=== PATIENT | female | born 1995 | race Two or more races ===

== ENCOUNTER 2025-08-30 08:30 | Emergency (ER) | payer BC, SELFPAY ==
--- NOTE | 2025-08-30 08:42 | EKG_ITS ---
[facility] [place] [facility] Test Date: 2025-08-30 Pat Name: JOSE CERVANTES Department: Room: - Gender: Female Government Professor: : 1995 Requested By: Steve Khoury (CHAIM) Order Number: [id number] Reading MD: Steve Khoury (ACCOUNTS PAYABLE COORDINATOR) Measurements Intervals [place] Rate: 72 P: 42 ME: 126 QRS: 76 QRSD: 85 T: 51 QT: 373 QTc: 410 Interpretive Statements SINUS RHYTHM No previous ECG available for comparison /store/S0/[id number].pdf
[2025-08-30 08:47] VITALS: BP 95/64; PULSE 71; RESP 18; TEMP 36.6; O2SAT 100
[2025-08-30 08:48] VITALS: BMI 22.6
--- NOTE | 2025-08-30 08:50 | PD.EDRME ---
Rapid Medical Screening Exam RME Arrival date/time: 08/30/25 08:30 30-year-old female presents to the Emergency Department today for complaint of near syncopal episode today patient reports episode of weakness where she felt like she was going to fall to the ground Chief Complaint: Syncope / Near Syncope Vital signs: Vital Signs Temperature 97.8 F 08/30/25 08:47 Pulse Rate 71 08/30/25 08:47 Respiratory Rate 18 08/30/25 08:47 Blood Pressure 95/64 08/30/25 08:47 Pulse Oximetry (%) 100 08/30/25 08:47 Oxygen Delivery Method Room Air 08/30/25 08:47
[2025-08-30 10:04] LABS: Basophils # (Auto) 0.1 Thou/mm3 (0.0-0.2); Basophils % (Auto) 1 % (0-2.5); Eosinophils # (Auto) 0.1 Thou/mm3 (0.0-0.5); Eosinophils % (Auto) 1 % (0-10); Hematocrit 39.1 % (36.0-46.0); Hemoglobin 13.1 g/dL (12.0-16.0); Immature Granulocytes Auto 0.02 Thou/mm3 (0.00-0.00); Lymphocytes # (Auto) 0.7 Thou/mm3 (1.0-4.8); Lymphocytes % (Auto) 10 % (10-50); Mean Corpuscular HGB Conc 33.5 g/dl (31.0-37.0); Mean Corpuscular Hemoglobin 29.5 pg (25.0-35.0); Mean Corpuscular Volume 88 fL (80-100); Monocytes # (Auto) 0.6 Thou/mm3 (0.0-0.8); Monocytes % (Auto) 8 % (0-12); Neutrophils # (Auto) 5.5 Thou/mm3 (1.8-7.7); Neutrophils % (Auto) 80 % (37-80); Nucleated Red Blood Cell # 0.00 Thou/mm3 (0.00-0.00); Nucleated Red Blood Cell % 0 /100 WBC (0); Platelet Count 228 Thou/mm3 (140-440); RDW Standard Deviation 39.8 fL (36.4-46.3); Red Blood Count 4.44 Miln/mm3 (4.00-5.20); White Blood Count 7.0 Thou/mm3 (3.6-11.0)
[2025-08-30 10:16] LABS: Amphetamine/Methamp Scrn,U Negative (Negative); Barbiturate Screen,Urine Negative (Negative); Benzodiazepines Screen,Urine Negative (Negative); Benzoylecgonine Screen, Ur Negative (Negative); Fentanyl Screen,Urine Negative (Negative); Opiate Screen,Urine Positive (Negative); THC Screen,Urine Negative (Negative)
[2025-08-30 10:26] LABS: Alanine Aminotransferase 15 U/L (10-49); Albumin, Serum 4.5 gm/dL (3.5-5.0); Albumin/Globulin Ratio 1.9 (1.2-2.2); Alkaline Phosphatase 66 U/L (46-116); Anion Gap 9 (7-16); Aspartate Amino Transferase 17 U/L (0-34); BUN/Creatinine Ratio 13 Ratio (12-20); Bilirubin,Total 0.5 mg/dL (0.3-1.2); Blood Urea Nitrogen 9 mg/dL (9-23); Calcium 8.9 mg/dL (8.3-10.6); Calcium (Corrected) 8.9 mg/dL (8.5-10.1); Carbon Dioxide 28.0 mMol/L (20.0-31.0); Chloride 104 mMol/L (98-107); Creatinine (Component) 0.7 mg/dL (0.6-1.3); Estimated Creatinine Clearance 108.0 mL/min (>60); Free T4 (Free Thyroxine) 1.15 ng/dL (0.89-1.76); Globulin 2.4 gm/dL (2.3-3.5); Glucose 86 mg/dL (74-106); Osmolality,Calculated 278 (275-295); Potassium 3.7 mMol/L (3.4-5.1); Sodium 141 mMol/L (136-145); Thyroid Stimulating Hormone 4.46 uIU/mL (0.55-4.78); Total Protein 6.9 gm/dL (5.7-8.2); Troponin I < 0.002 ng/mL (0.0-0.045); eGFR > 60 See Note
[2025-08-30 10:27] LABS: HCG,Qualitative Serum Negative
--- NOTE | 2025-08-30 11:11 | EDNOTE_ITS ---
ED General RME/HPI General Chief complaint: Syncope / Near Syncope Stated complaint: Syncope this morning X 4 Time Seen by Provider: 08/30/25 11:01 Arrival date/time: 08/30/25 08:30 CC: Lightheadedness dizziness HPI patient had 4 different episodes last 1 at 8:00 this morning no prior history of similar events denies any street drugs or alcohol. States she takes levothyroxine for hypothyroidism. Admits that she may be under some stress. Denies a fall but states that everything went black , 2 of the 4 times. Patient is not happened since then. Patient denies any chest pain shortness of breath difficulty breathing headache nausea vomiting or diarrhea. Patient states that she is on control pills does not feel she is , and the last menstrual cycle was 3 weeks ago. RME / HPI RME / HPI narrative: 08/30/25 08:30 30-year-old female presents to the Emergency Department today for complaint of near syncopal episode today patient reports episode of weakness where she felt like she was going to fall to the ground Related Data Home Medications ?Medication ?Instructions ?Recorded ?Confirmed vits no.124-ferrous fum 1 tab PO QDAY 9 09/28/20 27 mg iron-folic acid 800 mcg tablet ( Vitamin) Previous Rx's ?Medication ?Instructions ?Recorded epinephrine 0.3 mg/0.3 mL 0.3 ml subcut .once PRN 02/0 02/03 injection, auto-injector hypersensitivity reaction #2 ea Allergies Allergy/AdvReac Type Severity Reaction Status Date / Time No Known Drug Allergies Allergy Verified 08/30/25 08:33 Review of Systems Review of Systems Narrative Review of Systems: GEN: No fever, no chills, no weight loss EYES: No discharge, no visual changes, no pain HEENT: No ear pain, no congestion, no sore throat PULM: No shortness of breath, no cough, no congestion CV: No chest pain, no dyspnea on exertion, no palpitations GI: No nausea, no vomiting, no diarrhea, no pain, no constipation : No frequency, no urgency, no dysuria MUSC/SKEL: No joint pain, no back pain SKIN: No rash PSYCH: No hallucinations, no depression HEME/LYMPH: No easy bleeding or bruising tendencies NEURO: + weakness, no headache Past Medical History Past Medical History NEUROLOGIC: Negative Neurological Disorders CARDIAC: Negative Cardiac Disorders or Congestive Heart Failure RESPIRATORY: Negative Chronic Obstructive Pulmonary Disease (COPD) GASTROINTESTINAL: Negative Gastrointestinal Disorders or Hepatitis GENITOURINARY: Negative Genitourinary Disorders or Renal Disease REPRODUCTIVE: Positive Previous Pregnancies (2019) MUSCULOSKELETAL: Negative Musculoskeletal Disorders ENDOCRINE: Negative Endocrine Disorders, Diabetes Mellitus Type 1 or Diabetes Mellitus Type 2 HEMATOLOGIC: Negative Blood Disorders OTHER HISTORY: Positive Hospitalization (APPE AND CHILDBIRTH); Negative Autoimmune Disease, Down Syndrome, Developmental Delay, Shingles, Falls, Blood Transfusions, Blood Transfusion Reaction, Anesthesia Reactions, Organ Transplant, Chemotherapy, Radiation Therapy, Hyperbaric Therapy, MRSA, VRSA, Vancomycin-Resistant Enterococci, Human Immunodeficiency Virus (HIV), Chicken Pox, Measles, Mumps, Rubella (Italian Measles), Pertussis, Clostridium Difficile or Cancer Family History FAMILY HISTORY: Positive Family Cardiac Disorders (MOTHER-HTN); Negative Family Psychiatric Problems, Family Respiratory Disorders, Family Gastrointestinal Problems, Family Cancer, Family Surgery or Family Anesthesia Reaction Surgical History SURGICAL: Negative Section or Organ Transplant Social History SMOKING STATUS: Former smoker ED Exam Narrative Physical exam: [General: Not in any acute distress Head normocephalic HEENT: Within acceptable limits Neck is supple nontender Chest equal chest rise nontender to palpation Respiratory: Clear to auscultation no wheezes crackles or rubs CV: Rate rhythm is regular no murmurs rubs or clicks Abdomen is soft nontender no masses positive bowel sounds all 4 quadrants Back: No CVA tenderness no spinous process tenderness from cervical spine thoracic and lumbar spine Skin: Intact no petechiae rash induration ulceration or crepitus Extremities: Moving all extremity against resistance cap refill less than 2 seconds neurosensory intact Neuro: Awake alert oriented x3 Glascow coma 15 no focal deficits] Course Course Course Narrative: Patient has no explanation for the opioids in her system, this may be contributory or it may be stress-induced however patient has had no recurrences symptoms at this time patient will be discharged to follow-up with her primary care doctor. Quality Measures none Orders Category Date Time Status EKG (ED ONLY) *Do not use* NOW Care 08/30/25 08:42 Completed EKG (ED Only) Stat Exams 08/30/25 08:42 Ordered CBC Stat Lab 08/30/25 09:00 Completed Comprehensive Metabolic Panel Stat Lab 08/30/25 09:00 Completed Drug Screen,Urine Stat Lab 08/30/25 09:45 Completed Free T4 (Free Thyroxine) Stat Lab 08/30/25 09:00 Completed HCG,Qualitative Serum Stat Lab 08/30/25 09:00 Completed TSH [Thyroid Stimulating Hormone] Stat Lab 08/30/25 09:00 Completed Troponin I Stat Lab 08/30/25 09:00 Completed Vital Signs Vital signs: Vital Signs Temperature 97.8 F 08/30/25 08:47 Pulse Rate 71 08/30/25 08:47 Respiratory Rate 18 08/30/25 08:47 Blood Pressure 95/64 08/30/25 08:47 Pulse Oximetry (%) 100 08/30/25 08:47 Oxygen Delivery Method Room Air 08/30/25 08:47 Discharge Plan Plan Patient Disposition: HOME (Self Care) Patient condition on transfer: Stable Prescriptions/Referrals Prescriptions/Med Rec: No Action Vitamin 27 mg iron- 800 mcg Tablet 1 tab PO QDAY epinephrine 0.3 mg/0.3 mL auto-injector 0.3 ml subcut .once PRN (Reason: hypersensitivity reaction) Qty: 2 0RF Referrals: Lucy Bhakta PA-C [Primary Care Provider] - In 1 week Problem List Clinical Impression: Near syncope Patient/Caregiver Discharge Instructions Education Materials: ED Near-Fainting, Uncertain Cause Additional Instructions: If these episodes continue to recur keep a diary of the episodes how long they last for when they happen follow-up with your primary care doctor. Print Language: Moldovan Stand Alone Forms: Rola Award Info., Work/School Release, Patient Portal Info Letter FAB/GERSON Supervising Physician PA/GERSON Supervising Physician: Isaac Matos ENP [facility] Clinical Information Provided by: patient Medical Records reviewed [facility] Meds/Rx considered, not ordered None Labs/Rad/Tests considered, not ordered None Chronic Illness/Social Conditions which may negatively complicate care or outcome(s)-explain: None or not applicable Explain: Hypothyroidism EKG Interpretation EKG #1: EKG Interpretation: EKG performed at 849 shows a ventricular rate of 72 CT interval 126 QRS of 85 QTc of 397 this is sinus rhythm. Labs Labs: interpreted by sc Lab(s) Interpretation(s): CBC shows no acute leukocytosis anemia thrombocytopenia CMP shows no significant electrolyte imbalances renal impairment transaminitis or T. bili ovation UDS is positive for opioids Imaging Imaging interpretation: none Medication Administration(s) none Diagnosis Differential Diagnosis ED Complaint MDM: Syncope near syncope electrolyte imbalance
== END 2025-08-30 12:40 | disposition home or self-care (01) ==
PROVIDERS: Nurse Practitioner Primary Care; Emergency Provider Family Medicine; PCP Specialist
DX: R55 Syncope and collapse (principal); E03.9 Hypothyroidism, unspecified
CPT/HCPCS: 36415; 80053; 80307; 84439; 84443; 84484; 84703; 85025; 93005; 99283